=== PATIENT | female | born 1950 | race Caucasian/White ===

== ENCOUNTER 2017-06-13 14:51 | Outpatient (CLI) | payer OTHER ==
[~2017-06-13] VITALS: Ht 165.1 cm; Wt 87.3 kg
[2017-06-13 14:58] VITALS: BP 133/73; PULSE 58; RESP 16; Ht 165.1 cm; Wt 87.3 kg
[2017-06-13] MEDS ORDERED: CHOL100062 PO (15:18)
[2017-06-13] MEDS ORDERED: TORS20TA PO (15:18)
[2017-06-13] MEDS ORDERED: ASPI-664 PO (15:18)
[2017-06-13] MEDS ORDERED: TRAM-40 PO (15:18)
[2017-06-13] MEDS ORDERED: SODI325T PO (15:18)
[2017-06-13] MEDS ORDERED: UBID50TA PO (15:18)
[2017-06-13] MEDS ORDERED: CYAN500T46 PO (15:18)
[2017-06-13] MEDS ORDERED: METO25TA4 PO (15:18)
[2017-06-13] MEDS ORDERED: FEBU40TA PO (15:18)
[2017-06-13] MEDS ORDERED: LOSA50TA6 PO (15:18)
[2017-06-13] MEDS ORDERED: MELO-216 PO (15:18)
--- NOTE | 2017-06-13 22:43 | PN ---
DATE: 06/13/[facility] PROGRESS NOTE PLACE OF SERVICE. Hepatobiliary and pancreas center at [facility] SUBJECTIVE: The patient returns today to discuss the findings of the multidisciplinary tumor board that we held after she underwent endoscopic ultrasound evaluation of the head of the pancreas that demonstrated presence of either a mucinous cystic neoplasm or an IPMN, in the setting of painless jaundice, that required metallic stenting of the common bile duct at [facility] in February of 2017. The patient reports feeling relatively well, but not having great appetite. She has gained 1 pound since the hospitalization and has not had any changes or worsening of nausea or vomiting. No reported diarrhea or constipation. No blood in the stool or urine or other major issues that would require urgent or emergent visits to the healthcare industry. Her endoscopic ultrasound was done by Dr. Gtz at [facility] on 05/13/2017, and the final pathology demonstrated atypical cells, but no evidence of malignant cells. The tumor board had recommended the patient undergo a Whipple procedure. We spent the entirety of today's visit essentially counseling about the recommendation and obtaining the patient's consent for the operation. OBJECTIVE: VITAL SIGNS: BMI 32. Vital signs appear to be normal with the exception of pulse at 58 and blood pressure 133/73. HEENT: Her head is normocephalic and atraumatic. Her extraocular muscles and hearing are grossly intact bilaterally and symmetrically. Her sclerae are no longer icteric. Oral cavity is clear, and her oral mucosa appeared to be pink and moist. She has fair dentition. NECK: Supple. There is no lymphadenopathy or JVD. There is no submental, submandibular or supraclavicular lymphadenopathy. CHEST: Rises symmetrically with each breath, and she is breathing comfortably. There are no audible wheezes, rales or rhonchi on the gross exam. HEART: Her carotid pulses are palpable bilaterally and symmetrically in her neck. Her radial pulse is palpable on her left wrist. EXTREMITIES: Lower extremities contain no pitting edema around the ankles bilaterally and symmetrically. ABDOMEN: Soft, nontender and nondistended. There is no evidence of organomegaly, caput medusae, engorged subcutaneous veins or ascites. There are no peritoneal signs or guarding. SKIN: Appears to be pink and feels warm to touch. NEUROLOGIC: She is awake, alert, and follows commands appropriately. IMPRESSION AND PLAN: A very pleasant, but unfortunate 67-year-old lady with concerning signs of either a malignant or premalignant process in the head of the pancreas with bile duct obstruction requiring metallic stenting to alleviate the patient's jaundice, as well as endoscopic ultrasound findings of a cystic mass in the head of the pancreas, that is thought to be either a mucinous cystic process or an IPMN with some atypia in the cells. Both myself and later the multidisciplinary tumor board presentation and the committee have recommended that the patient strongly consider undergoing a Whipple procedure. I spent quite a bit of time today in our discussions, explaining the reasoning behind the recommendation, as well as the operation in detail with the help of diagrams, describing the day of the operation as well as the postoperative recovery, both in-house as well as outpatient with a full review of the risks, benefits and alternatives with the patient and her . I answered all the patient's questions. The patient and family clearly understood that there is about a 25% to 30% risk of a pancreatic leak, and approximately 3% to 5% risk of mortality from this operation. I answered all the patient's and family's questions to the best of my ability. The patient and family appeared to understand and agree with the proposed plans. ASSESSMENTS: With above assessment, I have recommended the followin. Preoperative history and physical. 2. Schedule the patient for a laparoscopic, possible open Whipple procedure in an expedited fashion, with a goal of accomplishing this within the first or second week in June. Thank you again for allowing us to participate in the care of this very pleasant lady and her wonderful family. If there are any questions, please feel free to contact me at [phone]. NATURE OF PRESENTING PROBLEM: High risk. COMPLEXITY OF DECISION MAKING: High complexity. Updated Clinical Summary: A very pleasant 66-year-old lady with multiple comorbidities, being evaluated for painless jaundice. Patient is status post ERCP with stenting with covered metallic stent. CA-19-9 is elevated and there are concerns for malignancy, although benign stricture from chronic inflammation is certainly in the differential. Note that the MRCP demonstrates presence of pancreatic pseudocyst and evidence for possible chronic pancreatitis. In the setting of cholelithiasis , it is conceivable that the patient has had prior episodes of either gallstone pancreatitis, alcohol pancreatitis or both. 50 lb wt loss since Jun 2016 ( reportedly intentional). No prior reported issues with pancreatitis or gallstone /biliary difficulties. Drank 1/2 bottle of had liquor every 1-2 days up to 10 years ago. No DUI or AA, but considered herself alcoholic then. Comorbidities: 1. BMI 32 2. Chronic kidney disease, possibly secondary to hypertension 3. Cholelithiasis 4. Malnutrition (albumin 2.8; [facility] Mar 2017) 5. Dyslipidemia, significant 6. Arthritis 7. Edema 8. 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 Status post ERCP, [facility], Dr. Magallanes 03/26/17 with sphincterotomy and papillotomy and placement of Sorto covered metallic stent (stricture noted distal common bile duct) next line 10. Right lower extremity wound secondary to venous stasis, been taking care of in wound center in [place] 10. Distant history of alcohol use 11. Right bundle-branch block Dictated By: SARAH MCWILLIAMS/OLGA Conf#: [id number] DID#: [id number] MTDD
== END 2017-06-13 16:42 | disposition home or self-care (01) ==
LOC: HPC 14:51
PROVIDERS: ATTEND Transplant Surgery
DX: K86.2 Cyst of pancreas (principal); R17 Unspecified jaundice; I12.9 Hypertensive chronic kidney disease with stage 1 through stage 4 chronic kidney disease, or unspecified chronic kidney disease; N18.9 Chronic kidney disease, unspecified; K80.20 Calculus of gallbladder without cholecystitis without obstruction; E46 Unspecified protein-calorie malnutrition; Z68.1 Body mass index [BMI] 19.9 or less, adult; E78.5 Hyperlipidemia, unspecified; M19.90 Unspecified osteoarthritis, unspecified site; R60.9 Edema, unspecified; I45.10 Unspecified right bundle-branch block; F10.10 Alcohol abuse, uncomplicated
CPT/HCPCS: G0463

== ENCOUNTER 2017-07-19 05:46 | Inpatient (IN) | END 2017-07-25 20:55 | disposition home or self-care (01) | DRG 405 ==

== ENCOUNTER 2017-08-03 15:19 | Outpatient (CLI) | END 2017-08-03 17:00 | disposition home or self-care (01) ==

== ENCOUNTER 2017-09-21 09:44 | Outpatient (CLI) | END 2017-09-21 17:02 | disposition home or self-care (01) ==

== ENCOUNTER 2017-10-17 17:58 | Inpatient (IN) | END 2017-10-20 17:20 | disposition home or self-care (01) | DRG 299 ==

== ENCOUNTER 2017-11-17 20:49 | Inpatient (IN) | END 2017-11-22 16:14 | disposition home or self-care (01) | DRG 871 ==